=== PATIENT | female | born 1940 | race Caucasian/White ===

== ENCOUNTER 2019-05-12 09:44 | Outpatient (CLI) | payer MEDICARE, OTHER ==
[2019-05-12] MEDS ORDERED: POTA20TA89 PO (10:24)
[2019-05-12] MEDS ORDERED: UBID1CAP4 PO (10:24)
[2019-05-12] MEDS ORDERED: estradiol VG (10:24)
[2019-05-12] MEDS ORDERED: LACT1CAP37 PO (10:24)
[2019-05-12] MEDS ORDERED: ROPI0.5T4 PO (10:24)
[2019-05-12] MEDS ORDERED: SIMV40TA20 PO (10:24)
[2019-05-12] MEDS ORDERED: LEVO88TA4 PO (10:24)
[2019-05-12] MEDS ORDERED: CHOL200024 PO (10:24)
[2019-05-12] MEDS ORDERED: CELE200C PO (10:24)
[2019-05-12] MEDS ORDERED: LANS30CA PO (10:24)
[2019-05-12] MEDS ORDERED: magnesium PO (10:24)
== END 2019-05-12 23:59 | disposition home or self-care (01) ==
LOC: STAR 09:44
PROVIDERS: ATTEND Obstetrics & Gynecology Female Pelvic Medicine and Reconstructive Surgery
DX: Z01.818 Encounter for other preprocedural examination (principal); N81.10 Cystocele, unspecified; N39.46 Mixed incontinence
CPT/HCPCS: 93005

== ENCOUNTER 2019-05-18 05:41 | Day surgery (SDC) | payer MEDICARE, OTHER ==
[~2019-05-18] VITALS: Ht 160 cm; Wt 81.0 kg
[~2019-05-18 05:41] MED LIST: CELE200C PO; CHOL200024 PO; LACT1CAP37 PO; LANS30CA PO; LEVO88TA4 PO; POTA20TA89 PO; ROPI0.5T2 PO; SIMV40TA3 PO; UBID1CAP4 PO; estradiol VG; magnesium PO
[2019-05-18] MEDS ORDERED: LIDOCAINE-MPF 1%, 2ML INFIL ONE (06:30)
[2019-05-18] MEDS ORDERED: LACTATED RINGERS 1,000 ML IV SCH ×2 (06:30→10:17)
[2019-05-18 06:32] VITALS: BP 135/78
[2019-05-18] MEDS ORDERED: ACET325T14 PO (06:39)
[2019-05-18] MEDS ORDERED: MUCINEX PO (06:39)
[2019-05-18] MEDS ORDERED: MIDAZOLAM 1 MG/ML, 2ML ONE (06:56)
[2019-05-18] MEDS ORDERED: FENTANYL PF 250 MCG/5ML ONE (06:56)
[2019-05-18] MEDS ORDERED: BUPIVACAINE/PF-EPI 0.25% 1:200K ONE ×2 (06:57→09:51)
[2019-05-18] MEDS ORDERED: INDIGO CARMINE 0.8%, 5ML ONE (06:57)
[2019-05-18] MEDS ORDERED: NEOMY/POLYMYXIN B GU IRR. 1 ML ONE (06:58)
[2019-05-18] MEDS ORDERED: THROMBIN 5,000 UNIT VIAL TP ONE (06:58)
[2019-05-18] MEDS ORDERED: ACETAMINOPHEN 500 MG TABLET ONE (07:05)
[2019-05-18] MEDS ORDERED: SCOPOLAMINE PATCH, 1.5MG PATCH.TD72 TD ONE ×2 (07:05→07:30)
[2019-05-18] MEDS ORDERED: GABAPENTIN 300 MG CAPSULE ONE (07:05)
[2019-05-18] MEDS ORDERED: GABAPENTIN 300 MG CAPSULE PO ONE (07:30)
[2019-05-18] MEDS ORDERED: ONDANSETRON 2MG/ML, 2ML ONE (07:30)
[2019-05-18] MEDS ORDERED: ROCURONIUM 10MG/ML,5ML ONE (07:30)
[2019-05-18] MEDS ORDERED: DEXAMETHASONE 4 MG/ML, 1ML ONE (07:30)
[2019-05-18] MEDS ORDERED: CEFAZOLIN 1,000 MG ONE (07:30)
[2019-05-18] MEDS ORDERED: SUCCINYLCHOLINE 20 MG/ML, 10ML ONE (07:30)
[2019-05-18] MEDS ORDERED: ACETAMINOPHEN 500 MG TABLET PO ONE (07:30)
[2019-05-18] MEDS ORDERED: PROPOFOL 10 MG/ML, 20ML ONE (07:30)
[2019-05-18] MEDS ORDERED: hydrALAzine 20 MG/ML, 1ML IV PRN (08:00)
[2019-05-18] MEDS ORDERED: ONDANSETRON 2MG/ML, 2ML IVPush PRN ×2 (08:00→10:30)
[2019-05-18] MEDS ORDERED: HYDROmorphone 1 MG/ML, 1ML INJ IV PRN (08:00)
[2019-05-18] MEDS ORDERED: MEPERIDINE/PF 25MG/0.5ML IVPush PRN (08:00)
[2019-05-18] MEDS ORDERED: OXYcodone 5 MG/5 ML ORAL.SOL UDC PO PRN (08:00)
[2019-05-18] MEDS ORDERED: PROMETHAZINE 25 MG/ML, 1ML IV PRN (08:00)
[2019-05-18] MEDS ORDERED: FENTANYL PF 100 MCG/2ML IV PRN (08:00)
[2019-05-18] MEDS ORDERED: ALBUTEROL SULFATE 2.5 MG/3 ML NPPB PRN (08:00)
[2019-05-18] MEDS ORDERED: KETOROLAC 30 MG/1 ML IV PRN (08:00)
[2019-05-18] MEDS ORDERED: DIAZEPAM 5 MG/ML, 2ML IV PRN ×2 (08:00)
[2019-05-18] MEDS ORDERED: LABETALOL 5MG/ML, 20ML IV PRN (08:00)
[2019-05-18] MEDS ORDERED: METOCLOPRAMIDE 5 MG/ML, 2ML IV PRN (08:00)
[2019-05-18] MEDS ORDERED: PROMETHAZINE 25 MG SUPP PR ONE (10:30)
[2019-05-18] MEDS ORDERED: OXYcodone/APAP 5/325MG TABLET PO PRN (10:30)
[2019-05-18] MEDS ORDERED: IBUPROFEN 600 MG TABLET PO PRN (10:30)
[2019-05-18] MEDS ORDERED: MEPERIDINE/PF 25MG/ML,1ML ONE (11:06)
== END 2019-05-18 18:51 | disposition home or self-care (01) ==
LOC: OUT 05:41
PROVIDERS: ATTEND Obstetrics & Gynecology Female Pelvic Medicine and Reconstructive Surgery
DX: N81.4 Uterovaginal prolapse, unspecified (principal); N39.46 Mixed incontinence; R15.9 Full incontinence of feces; N32.81 Overactive bladder; E03.9 Hypothyroidism, unspecified; Z87.39 Personal history of other diseases of the musculoskeletal system and connective tissue; Z88.8 Allergy status to other drugs, medicaments and biological substances
CPT/HCPCS: 57282; 57288; 58542; 88307; C1771; C1781; J0330; J0690; J1100; J2250; J2405; J2704; J3010; J7120

== ENCOUNTER 2019-05-30 20:00 | Inpatient (IN) | payer MEDICARE ==
[~2019-05-30] VITALS: Ht 161.3 cm; Wt 87.3 kg
[~2019-05-30 20:00] MED LIST changes: +ACET325T14 PO; +MUCINEX PO; -ROPI0.5T2 PO; +ROPI0.5T4 PO; +SIMV40TA20 PO; -SIMV40TA3 PO
[2019-05-30] MEDS ORDERED: OMNIPAQUE 350 MG/ML, 100ML BOTTLE ONE (20:52)
[2019-05-30] MEDS ORDERED: ONDANSETRON 2MG/ML, 2ML IVPush ONE (21:00)
[2019-05-30] MEDS ORDERED: SODIUM CHLORIDE FLUSH 10ML SYR IVF ONE (21:00)
[2019-05-30 21:16] LABS: BASOPHILS # (AUTO) 0.03 x10^3/uL (0-0.1); BASOPHILS % (AUTO) 0 % (0-1); EOSINOPHILS # (AUTO) 0.01 x10^3/uL (0-0.4); EOSINOPHILS % (AUTO) 0 % (1-7); LYMPHOCYTES # (AUTO) 1.82 x10^3/uL (1-3.4); LYMPHOCYTES % (AUTO) 11 % (22-44); MD NO; MEAN CORPUSCULAR HEMOGLOBIN 32.3 pg (27.0-34.8); MEAN CORPUSCULAR HGB CONC 33.8 g/dL (32.4-35.8); MEAN CORPUSCULAR VOLUME 95.6 fL (80-100); MONOCYTES # (AUTO) 0.83 x10^3/uL (0.2-0.8); MONOCYTES % (AUTO) 5 % (2-9); NEUTROPHILS # (AUTO) 13.39 x10^3/uL (1.8-6.8); NEUTROPHILS % (AUTO) 83 % (42-75); PLATELET COUNT 267 x10^3/uL (130-400); RED BLOOD COUNT 4.36 x10^6/uL (3.82-5.3); RED CELL DISTRIBUTION WIDTH 12.5 % (9.6-15.2)
[2019-05-30] MEDS ORDERED: ONDANSETRON 2MG/ML, 2ML ONE (21:17)
[2019-05-30 21:28] LABS: ALANINE AMINOTRANSFERASE 28 U/L (12-78); ALBUMIN 3.4 g/dL (3.4-5.0); ANION GAP 8 mmol/L (5-15); CHLORIDE 100 mmol/L (98-107)
[2019-05-30 21:30] LABS: ALKALINE PHOSPHATASE 116 U/L (45-117); BILIRUBIN,TOTAL 0.9 mg/dL (0.2-1.0); TOTAL PROTEIN 7.8 g/dL (6.4-8.2)
[2019-05-30] MEDS ORDERED: SODIUM CHLORIDE 0.9% 1,000ML IVBOLUS ONE (21:30)
--- NOTE | 2019-05-30 21:41 | NUR ---
BLOOD CULTURES OBTAINED FROM [facility]AC X2. SENT TO LAB. PT TO CT. IN .
[2019-05-30] MEDS ORDERED: PIPERACILLIN/TAZO/PMX 3.375GM 50 ML IVPB ONE (22:30)
[2019-05-30] MEDS ORDERED: VANCOMYCIN PER PHARMACY MC ONE (22:30)
[2019-05-30 22:34] LABS: MICROSCOPIC AUTO
[2019-05-30 22:43] LABS: CULTURE INDICATED? YES
[2019-05-30] MEDS ORDERED: PIPERACILLIN/TAZO/PMX 3.375GM 50 ML ONE (22:44)
[2019-05-30] MEDS ORDERED: VANCOMYCIN 1,600 MG in SODIUM CHLORIDE 0.9% 250 ML IV ONE (23:00)
--- NOTE | 2019-05-30 23:08 | NUR ---
PT PROVIDED SNACK. NPO AT MIDNIGHT. FAMILY AT BEDSIDE. NO OTHER NEEDS AT THIS TIME.
[2019-05-30] MEDS ORDERED: PHARMACOKINETIC MONITORING MC PRN (23:30)
[2019-05-30] MEDS ORDERED: ONDANSETRON 2MG/ML, 2ML IVPush PRN (23:30)
[2019-05-30] MEDS ORDERED: VANCOMYCIN PER PHARMACY MC PRN (23:30)
[2019-05-30] MEDS ORDERED: CEFTRIAXONE PMX 1GM/50ML 50 ML IV ONE (23:30)
[2019-05-31 00:16] VITALS: BP 103/68
[2019-05-31 01:56] VITALS: BP 111/70
[2019-05-31] MEDS: SODIUM CHLORIDE 0.9% 1,000 ML IV SCH ×2 (02:25→14:48)
[2019-05-31] MEDS: PIPERACILLIN/TAZO/PMX 3.375GM 50 ML IV SCH ×3 (06:00→19:06)
[2019-05-31 06:12] LABS: ANION GAP 7 mmol/L (5-15); CALCIUM 8.8 mg/dL (8.5-10.1); CHLORIDE 105 mmol/L (98-107); CREATININE 0.77 mg/dL (0.55-1.02)
[2019-05-31 06:17] LABS: BASOPHILS # (AUTO) 0.03 x10^3/uL (0-0.1); BASOPHILS % (AUTO) 0 % (0-1); EOSINOPHILS # (AUTO) 0.01 x10^3/uL (0-0.4); EOSINOPHILS % (AUTO) 0 % (1-7); LYMPHOCYTES # (AUTO) 2.07 x10^3/uL (1-3.4); LYMPHOCYTES % (AUTO) 15 % (22-44); MD NO; MEAN CORPUSCULAR HEMOGLOBIN 32.1 pg (27.0-34.8); MEAN CORPUSCULAR HGB CONC 33.6 g/dL (32.4-35.8); MEAN CORPUSCULAR VOLUME 95.7 fL (80-100); MEAN PLATELET VOLUME 8.5 fL (7.4-10.4); MONOCYTES # (AUTO) 0.83 x10^3/uL (0.2-0.8); MONOCYTES % (AUTO) 6 % (2-9); NEUTROPHILS # (AUTO) 10.79 x10^3/uL (1.8-6.8); NEUTROPHILS % (AUTO) 79 % (42-75); PLATELET COUNT 248 x10^3/uL (130-400); RED BLOOD COUNT 3.99 x10^6/uL (3.82-5.3); RED CELL DISTRIBUTION WIDTH 12.4 % (9.6-15.2)
[2019-05-31 08:00] VITALS: BP 100/66
[2019-05-31 12:56] VITALS: BP 105/66
[2019-05-31] MEDS ORDERED: PHARMACOKINETIC MONITORING MC PRN (13:00)
[2019-05-31] MEDS ORDERED: FLUCONAZOLE 100 MG TABLET PO ONE (13:00)
[2019-05-31] MEDS: SIMETHICONE 80 MG CHEW TAB PO PRN (14:47)
[2019-05-31] MEDS: DOCUSATE 100 MG CAPSULE PO SCH (17:24)
[2019-05-31] MEDS ORDERED: SIMETHICONE 80 MG CHEW TAB PO ONE (17:30)
[2019-05-31 20:00] VITALS: BP 94/57
[2019-05-31] MEDS: ACETAMINOPHEN 325 MG TABLET PO PRN (21:58)
[2019-05-31 23:01] VITALS: BP 106/66
[2019-06-01] MEDS: PIPERACILLIN/TAZO/PMX 3.375GM 50 ML IV SCH ×4 (00:16→19:30)
[2019-06-01] MEDS: SODIUM CHLORIDE 0.9% 1,000 ML IV SCH ×3 (02:19→21:52)
[2019-06-01 02:55] VITALS: BP 108/66
[2019-06-01 05:53] LABS: BASOPHILS # (AUTO) 0.02 x10^3/uL (0-0.1); BASOPHILS % (AUTO) 0 % (0-1); EOSINOPHILS # (AUTO) 0.02 x10^3/uL (0-0.4); EOSINOPHILS % (AUTO) 0 % (1-7); LYMPHOCYTES # (AUTO) 1.47 x10^3/uL (1-3.4); LYMPHOCYTES % (AUTO) 15 % (22-44); MD NO; MEAN CORPUSCULAR HEMOGLOBIN 32.1 pg (27.0-34.8); MEAN CORPUSCULAR HGB CONC 33.2 g/dL (32.4-35.8); MEAN CORPUSCULAR VOLUME 96.6 fL (80-100); MEAN PLATELET VOLUME 8.4 fL (7.4-10.4); MONOCYTES # (AUTO) 0.54 x10^3/uL (0.2-0.8); MONOCYTES % (AUTO) 6 % (2-9); NEUTROPHILS # (AUTO) 7.66 x10^3/uL (1.8-6.8); NEUTROPHILS % (AUTO) 79 % (42-75); PLATELET COUNT 192 x10^3/uL (130-400); RED BLOOD COUNT 3.57 x10^6/uL (3.82-5.3); RED CELL DISTRIBUTION WIDTH 12.6 % (9.6-15.2)
[2019-06-01 06:02] LABS: ANION GAP 5 mmol/L (5-15); CALCIUM 8.5 mg/dL (8.5-10.1); CHLORIDE 109 mmol/L (98-107)
[2019-06-01 06:05] LABS: CREATININE 0.77 mg/dL (0.55-1.02)
[2019-06-01 06:53] VITALS: BP 92/58
[2019-06-01] MEDS: DOCUSATE 100 MG CAPSULE PO SCH ×2 (08:23→19:28)
[2019-06-01] MEDS ORDERED: NALOXONE 1 MG/ML, 2ML ONE (10:24)
[2019-06-01] MEDS ORDERED: FLUMAZENIL 0.1 MG/1 ML, 5ML ONE (10:24)
[2019-06-01] MEDS ORDERED: FENTANYL PF 100 MCG/2ML ONE (10:24)
[2019-06-01] MEDS ORDERED: MIDAZOLAM 1 MG/ML, 5ML ONE ×2 (10:24)
[2019-06-01] MEDS ORDERED: LIDOCAINE 1%, 20ML ONE (10:36)
[2019-06-01] MEDS ORDERED: VANCOMYCIN 1,600 MG in SODIUM CHLORIDE 0.9% 250 ML IV SCH (11:00)
[2019-06-01 16:02] VITALS: BP 103/67
[2019-06-01 18:51] VITALS: BP 101/60
[2019-06-01] MEDS: ACETAMINOPHEN 325 MG TABLET PO PRN (19:27)
[2019-06-02] VITALS: BP 104/67
[2019-06-02] MEDS: PIPERACILLIN/TAZO/PMX 3.375GM 50 ML IV SCH ×4 (02:05→19:50)
[2019-06-02] MEDS: SIMETHICONE 80 MG CHEW TAB PO PRN (03:10)
[2019-06-02] MEDS: SODIUM CHLORIDE 0.9% 1,000 ML IV SCH ×2 (05:42→14:24)
[2019-06-02 07:13] VITALS: BP 119/73
[2019-06-02] MEDS: LEVOTHYROXINE 88 MCG TABLET PO SCH (08:49)
[2019-06-02] MEDS: PANTOPROZOLE 40MG TABLET PO SCH (08:49)
[2019-06-02] MEDS: CHOLECALCIFEROL 1,000 UNIT TABLET PO SCH (08:50)
[2019-06-02] MEDS: ROPINIROLE 0.5MG TABLET PO SCH ×2 (08:51→19:51)
[2019-06-02] MEDS: POLYETHYLENE GLYCOL 17 GM PACKET PO SCH ×2 (08:52→09:00)
[2019-06-02] MEDS: LACTOBACILLUS CHEW TABLET PO SCH (08:52)
[2019-06-02] MEDS: POTASSIUM CHLORIDE 20 MEQ TAB.ER.PRT PO SCH (08:52)
[2019-06-02] MEDS: DOCUSATE 100 MG CAPSULE PO SCH ×2 (08:52→19:50)
[2019-06-02 13:56] VITALS: BP 102/64
[2019-06-02] MEDS: LINEZOLID 600 MG TABLET PO SCH (17:33)
[2019-06-02 19:38] VITALS: BP 121/79
[2019-06-02] MEDS: SIMVASTATIN 40 MG TABLET PO SCH (19:51)
[2019-06-03 00:58] VITALS: BP 121/74
[2019-06-03] MEDS: PIPERACILLIN/TAZO/PMX 3.375GM 50 ML IV SCH ×2 (01:25→08:08)
[2019-06-03 05:39] LABS: BASOPHILS # (AUTO) 0.05 x10^3/uL (0-0.1); BASOPHILS % (AUTO) 1 % (0-1); EOSINOPHILS # (AUTO) 0.08 x10^3/uL (0-0.4); EOSINOPHILS % (AUTO) 1 % (1-7); LYMPHOCYTES # (AUTO) 1.62 x10^3/uL (1-3.4); LYMPHOCYTES % (AUTO) 27 % (22-44); MD NO; MEAN CORPUSCULAR HEMOGLOBIN 32.4 pg (27.0-34.8); MEAN CORPUSCULAR HGB CONC 33.7 g/dL (32.4-35.8); MEAN CORPUSCULAR VOLUME 96.2 fL (80-100); MEAN PLATELET VOLUME 8.7 fL (7.4-10.4); MONOCYTES # (AUTO) 0.31 x10^3/uL (0.2-0.8); MONOCYTES % (AUTO) 5 % (2-9); NEUTROPHILS # (AUTO) 3.95 x10^3/uL (1.8-6.8); NEUTROPHILS % (AUTO) 66 % (42-75); PLATELET COUNT 200 x10^3/uL (130-400); RED BLOOD COUNT 3.31 x10^6/uL (3.82-5.3); RED CELL DISTRIBUTION WIDTH 12.3 % (9.6-15.2)
[2019-06-03] MEDS: LEVOTHYROXINE 88 MCG TABLET PO SCH (05:45)
[2019-06-03] MEDS: PANTOPROZOLE 40MG TABLET PO SCH ×2 (05:45→06:18)
[2019-06-03] MEDS: LINEZOLID 600 MG TABLET PO SCH ×2 (05:45→06:18)
[2019-06-03] MEDS: SODIUM CHLORIDE 0.9% 1,000 ML IV SCH (05:45)
[2019-06-03 05:47] LABS: CHLORIDE 112 mmol/L (98-107)
[2019-06-03 05:54] LABS: ANION GAP 8 mmol/L (5-15); CALCIUM 8.4 mg/dL (8.5-10.1); CREATININE 0.59 mg/dL (0.55-1.02)
[2019-06-03 07:47] VITALS: BP 109/64
[2019-06-03] MEDS: POTASSIUM CHLORIDE 20 MEQ TAB.ER.PRT PO SCH ×3 (08:08→17:45)
[2019-06-03] MEDS: CHOLECALCIFEROL 1,000 UNIT TABLET PO SCH (08:09)
[2019-06-03] MEDS: DOCUSATE 100 MG CAPSULE PO SCH ×2 (08:09→20:26)
[2019-06-03] MEDS: POLYETHYLENE GLYCOL 17 GM PACKET PO SCH (08:09)
[2019-06-03] MEDS: ROPINIROLE 0.5MG TABLET PO SCH ×2 (08:09→20:26)
[2019-06-03] MEDS: LACTOBACILLUS CHEW TABLET PO SCH (08:09)
[2019-06-03] MEDS: AMPICILLIN/SULBACTAM 3 GM in SODIUM CHLORIDE 0.9% 100 ML IV SCH ×2 (13:33→20:26)
[2019-06-03 15:10] VITALS: BP 131/70
[2019-06-03] MEDS: SIMVASTATIN 40 MG TABLET PO SCH (20:26)
[2019-06-03 20:53] VITALS: BP 131/68
[2019-06-04 01:15] VITALS: BP 124/58
[2019-06-04] MEDS: AMPICILLIN/SULBACTAM 3 GM in SODIUM CHLORIDE 0.9% 100 ML IV SCH ×4 (01:19→19:35)
[2019-06-04 06:05] LABS: ANION GAP 7 mmol/L (5-15); CALCIUM 8.7 mg/dL (8.5-10.1); CHLORIDE 112 mmol/L (98-107); CREATININE 0.62 mg/dL (0.55-1.02)
[2019-06-04 06:12] LABS: BASOPHILS # (AUTO) 0.03 x10^3/uL (0-0.1); BASOPHILS % (AUTO) 1 % (0-1); EOSINOPHILS # (AUTO) 0.09 x10^3/uL (0-0.4); EOSINOPHILS % (AUTO) 2 % (1-7); LYMPHOCYTES # (AUTO) 1.67 x10^3/uL (1-3.4); LYMPHOCYTES % (AUTO) 33 % (22-44); MD NO; MEAN CORPUSCULAR HEMOGLOBIN 32.1 pg (27.0-34.8); MEAN CORPUSCULAR HGB CONC 33.3 g/dL (32.4-35.8); MEAN CORPUSCULAR VOLUME 96.4 fL (80-100); MEAN PLATELET VOLUME 8.7 fL (7.4-10.4); MONOCYTES % (AUTO) 6 % (2-9); NEUTROPHILS # (AUTO) 3.04 x10^3/uL (1.8-6.8); NEUTROPHILS % (AUTO) 59 % (42-75); PLATELET COUNT 254 x10^3/uL (130-400); RED BLOOD COUNT 3.57 x10^6/uL (3.82-5.3); RED CELL DISTRIBUTION WIDTH 12.1 % (9.6-15.2)
[2019-06-04] MEDS: LEVOTHYROXINE 88 MCG TABLET PO SCH (06:16)
[2019-06-04] MEDS: DOCUSATE 100 MG CAPSULE PO SCH ×2 (07:48→21:00)
[2019-06-04] MEDS: PANTOPROZOLE 40MG TABLET PO SCH (07:48)
[2019-06-04] MEDS: ROPINIROLE 0.5MG TABLET PO SCH ×2 (07:48→21:01)
[2019-06-04] MEDS: POTASSIUM CHLORIDE 20 MEQ TAB.ER.PRT PO SCH (07:48)
[2019-06-04] MEDS: CHOLECALCIFEROL 1,000 UNIT TABLET PO SCH (07:48)
[2019-06-04] MEDS: LACTOBACILLUS CHEW TABLET PO SCH (07:52)
[2019-06-04] MEDS: POLYETHYLENE GLYCOL 17 GM PACKET PO SCH (07:57)
[2019-06-04 09:00] VITALS: BP 115/63
[2019-06-04 13:51] VITALS: BP 134/82
[2019-06-04 18:30] VITALS: BP 134/69
[2019-06-04] MEDS: SIMVASTATIN 40 MG TABLET PO SCH (21:01)
[2019-06-05] MEDS: AMPICILLIN/SULBACTAM 3 GM in SODIUM CHLORIDE 0.9% 100 ML IV SCH ×2 (01:37→07:42)
[2019-06-05 01:53] VITALS: BP 131/78
[2019-06-05] MEDS: LEVOTHYROXINE 88 MCG TABLET PO SCH (05:26)
[2019-06-05 06:40] VITALS: BP 120/76
[2019-06-05] MEDS: PANTOPROZOLE 40MG TABLET PO SCH (07:42)
[2019-06-05] MEDS: SIMETHICONE 80 MG CHEW TAB PO PRN (07:43)
[2019-06-05] MEDS: POLYETHYLENE GLYCOL 17 GM PACKET PO SCH (09:00)
[2019-06-05] MEDS: DOCUSATE 100 MG CAPSULE PO SCH ×2 (09:00→20:32)
[2019-06-05] MEDS: LACTOBACILLUS CHEW TABLET PO SCH (09:32)
[2019-06-05] MEDS: CHOLECALCIFEROL 1,000 UNIT TABLET PO SCH (09:32)
[2019-06-05] MEDS: ROPINIROLE 0.5MG TABLET PO SCH ×2 (09:32→20:32)
[2019-06-05] MEDS: DAPTOMYCIN 700 MG in SODIUM CHLORIDE 0.9% 100 ML IVPB SCH (11:53)
[2019-06-05 12:19] VITALS: BP 127/71
[2019-06-05 18:35] VITALS: BP 95/66
[2019-06-06 00:06] VITALS: BP 143/89
[2019-06-06] MEDS: PANTOPROZOLE 40MG TABLET PO SCH (05:26)
[2019-06-06] MEDS: LEVOTHYROXINE 88 MCG TABLET PO SCH (05:26)
[2019-06-06 06:39] VITALS: BP 117/77
[2019-06-06] MEDS ORDERED: DAPT500V6 IVPB (07:46)
[2019-06-06] MEDS: CHOLECALCIFEROL 1,000 UNIT TABLET PO SCH (08:07)
[2019-06-06] MEDS: LACTOBACILLUS CHEW TABLET PO SCH (08:08)
[2019-06-06] MEDS: DOCUSATE 100 MG CAPSULE PO SCH (08:08)
[2019-06-06] MEDS: ROPINIROLE 0.5MG TABLET PO SCH (08:08)
[2019-06-06] MEDS: POLYETHYLENE GLYCOL 17 GM PACKET PO SCH (08:08)
[2019-06-06] MEDS: DAPTOMYCIN 700 MG in SODIUM CHLORIDE 0.9% 100 ML IVPB SCH (10:52)
== END 2019-06-06 11:45 | disposition home health service (06) | DRG 862 ==
LOC: ED 21:22 → EDIP 22:45 → 3N 05-31 00:05
PROVIDERS: ADMIT Internal Medicine; ATTEND Internal Medicine
PROC: 0W9J30Z Drainage of Pelvic Cavity with Drainage Device, Percutaneous Approach (ICD-10-PCS; principal; 2019-06-01)
PROC: 02HV33Z Insertion of Infusion Device into Superior Vena Cava, Percutaneous Approach (ICD-10-PCS; 2019-06-05)
PROC: B548ZZA Ultrasonography of Superior Vena Cava, Guidance (ICD-10-PCS; 2019-06-05)
PROC: B548ZZA Ultrasonography of Superior Vena Cava, Guidance (ICD-10-PCS; 2019-06-05)
DX: T81.43XA Infection following a procedure, organ and space surgical site, initial encounter (principal); A41.9 Sepsis, unspecified organism; E87.1 Hypo-osmolality and hyponatremia; L02.91 Cutaneous abscess, unspecified; N73.8 Other specified female pelvic inflammatory diseases; Z88.8 Allergy status to other drugs, medicaments and biological substances; D63.8 Anemia in other chronic diseases classified elsewhere; E03.9 Hypothyroidism, unspecified; E78.00 Pure hypercholesterolemia, unspecified; E78.5 Hyperlipidemia, unspecified; E87.6 Hypokalemia; G25.81 Restless legs syndrome; I10 Essential (primary) hypertension; M19.90 Unspecified osteoarthritis, unspecified site; M51.36 Other intervertebral disc degeneration, lumbar region; M85.80 Other specified disorders of bone density and structure, unspecified site; Z82.49 Family history of ischemic heart disease and other diseases of the circulatory system; Z83.3 Family history of diabetes mellitus; Z79.899 Other long term (current) drug therapy; Z90.711 Acquired absence of uterus with remaining cervical stump; Z87.891 Personal history of nicotine dependence; R32 Unspecified urinary incontinence; N73.9 Female pelvic inflammatory disease, unspecified; Y83.8 Other surgical procedures as the cause of abnormal reaction of the patient, or of later complication, without mention of misadventure at the time of the procedure
CPT/HCPCS: 36415; 36573; 49406; 74018; 74177; 75989; 80048; 80053; 81001; 82550; 83605; 83735; 84145; 85025; 87040; 87070; 87075; 87077; 87086; 87186; 87205; 96374; 96375; 99156; 99157; C1894; G0378; J0295; J0878; J2250; J2405; J2543; J3010; J3370; Q9967; C1729; C1751; J2310; J7030; J7050

== ENCOUNTER 2019-06-22 09:48 | Outpatient (CLI) | payer MEDICARE ==
[~2019-06-22 09:48] MED LIST changes: +DAPT500V6 IVPB
== END 2019-06-22 23:59 | disposition home or self-care (01) ==
LOC: RAD 09:48
PROVIDERS: ATTEND Internal Medicine Infectious Disease
DX: N73.8 Other specified female pelvic inflammatory diseases (principal); M47.819 Spondylosis without myelopathy or radiculopathy, site unspecified
CPT/HCPCS: 74177

== ENCOUNTER → 2020-05-19 | Outpatient (CLI) | payer MEDICARE | END | disposition home or self-care (01) | LOC: RAD 16:49 | PROVIDERS: ATTEND Nurse Practitioner | DX: S83.282A Other tear of lateral meniscus, current injury, left knee, initial encounter (principal); M17.12 Unilateral primary osteoarthritis, left knee; M25.462 Effusion, left knee; X58.XXXA Exposure to other specified factors, initial encounter; Y93.89 Activity, other specified; Y92.89 Other specified places as the place of occurrence of the external cause; Y99.8 Other external cause status ==

== ENCOUNTER 2021-01-13 08:41 | Outpatient (CLI) | payer MEDICARE ==
[~2021-01-13 08:41] MED LIST changes: -LACT1CAP37 PO; +LACT1CAP47 PO
[2021-01-13 09:13] LABS: ALANINE AMINOTRANSFERASE 27 U/L (12-78); ALBUMIN 3.7 g/dL (3.4-5.0); ANION GAP 4 mmol/L (5-15); CALCIUM 9.3 mg/dL (8.5-10.1); CHLORIDE 111 mmol/L (98-107)
[2021-01-13 09:21] LABS: BASOPHILS % (AUTO) 1 % (0-1); EOSINOPHILS % (AUTO) 1 % (1-7); LYMPHOCYTES % (AUTO) 39 % (22-44); MEAN CORPUSCULAR HEMOGLOBIN 32.6 pg (27.0-34.8); MEAN CORPUSCULAR HGB CONC 33.7 g/dL (32.4-35.8); MEAN PLATELET VOLUME 8.4 fL (7.4-10.4); MONOCYTES % (AUTO) 8 % (2-9); NEUTROPHILS % (AUTO) 51 % (42-75); PLATELET COUNT 202 x10^3/uL (130-400); RED CELL DISTRIBUTION WIDTH 12.9 % (9.6-15.2)
[2021-01-13 09:22] LABS: ALKALINE PHOSPHATASE 89 U/L (45-117); BILIRUBIN,TOTAL 0.5 mg/dL (0.2-1.0); CHOL/HDL RATIO 2.6; CHOLESTEROL, TOTAL 153 mg/dL (140-239); FREE T4 (FREE THYROXINE) 1.11 ng/dL (0.76-1.46); HDL CHOL % 38 % (28-40); HDL CHOLESTEROL (DIRECT) 58 mg/dL (40-60); LDL CHOLESTEROL,CALCULATED 77 mg/dL (54-169); LDL/HDL RATIO 1.3 (0.5-3.0); TOTAL PROTEIN 7.3 g/dL (6.4-8.2); TRIGLYCERIDES 92 mg/dL (50-200); VLDL CHOLESTEROL 18 mg/dL (0-25)
== END 2021-01-13 23:59 | disposition home or self-care (01) ==
LOC: LAB 08:41
PROVIDERS: ATTEND Genetic Counselor, MS
DX: E78.2 Mixed hyperlipidemia (principal); E03.9 Hypothyroidism, unspecified; K21.9 Gastro-esophageal reflux disease without esophagitis; R39.15 Urgency of urination
CPT/HCPCS: 36415; 80053; 80061; 84439; 84443; 85025; 85027